=== PATIENT | male | born 1970 | race Caucasian/White ===

== ENCOUNTER 2017-04-14 09:12 | Emergency (ER) | payer SELFPAY ==
[~2017-04-14] VITALS: Ht 162.6 cm; Wt 64.1 kg
[~2017-04-14 09:12] MED LIST: ADVAIR 250/501 DISK IH; ASPIRIN325 MG PO; AZITHROMYCIN500 M1 PO; NICOTINE PATCH1 EAC2 TD; PREDNISONE10 MG PO; PROAIR RESPICL90 MCG IH; PROTONIX40 MG PO; SPIRIVA1 INHALATI IH; VENTOLIN HFA18 GM IH
[2017-04-14 10:08] LABS: HEMOGLOBIN 15.2 G/DL (12.5-16.6); MCH 31.7 PG (29.0-34.0); MCHC 34.5 G/DL (30.0-36.0); MCV 91.9 FL (86-99); PLATELET COUNT 282 K/uL (156-360); RBC DIS.WIDTH-CV 12.7 % (11.8-14.6); RBC DIS.WIDTH-SD 42.8 % (39-53); RED BLOOD COUNT 4.79 M/uL (4.00-5.50); WHITE BLOOD COUNT 8.4 K/uL (4.1-10.2)
[2017-04-14 10:18] LABS: CHLORIDE 106 mEq/L (99-109); POTASSIUM 4.1 mEq/L (3.7-5.4); SODIUM 138 mEq/L (136-147)
[2017-04-14 10:20] LABS: GLUCOSE 95 mg/dL (70-99)
[2017-04-14 10:23] LABS: CREATININE 0.8 mg/dL (0.6-1.3); GFR ESTIMATE (CALCULATED) > 59 mL/min/ (58.99-99999)
[2017-04-14 10:24] LABS: UREA NITROGEN (BUN) 10 mg/dL (9-23)
[2017-04-14 13:30] VITALS: BP 101/70
== END 2017-04-14 13:47 | disposition left against medical advice (07) ==
LOC: EME 09:12
DX: J45.909 Unspecified asthma, uncomplicated (principal); R91.8 Other nonspecific abnormal finding of lung field; F17.200 Nicotine dependence, unspecified, uncomplicated; Z87.01 Personal history of pneumonia (recurrent); Z79.82 Long term (current) use of aspirin; Z90.89 Acquired absence of other organs
CPT/HCPCS: 71046; 80048; 85027; 93005